=== PATIENT | female | born 1970 | race Caucasian/White ===

== ENCOUNTER → 2017-02-07 | Outpatient (CLI) | payer OTHER ==
[~2017-02-07] MED LIST: HYDROMORPHONE2 MG PO
[2017-02-07 09:20] LABS: LYMPH # 1.1 K/mm3 (0.7-4.5); LYMPH % 24.9 % (10-50.0)
[2017-02-07 09:28] LABS: HEMOGLOBIN 13.1 g/dL (12.2-16.2)
[2017-02-07 10:32] LABS: BUN 14 mg/dL (7-18)
[2017-02-07 10:34] LABS: GFR (ESTIMATED) 78 ML/MIN (59-)
== END ==
LOC: LAB 09:05
PROVIDERS: Nurse Practitioner Obstetrics & Gynecology
DX: N92.0 Excessive and frequent menstruation with regular cycle (principal); N83.209 Unspecified ovarian cyst, unspecified side; Z01.818 Encounter for other preprocedural examination

== ENCOUNTER 2017-02-10 06:17 | Observation (INO) | payer OTHER ==
[2017-02-10] VITALS (14 sets, daily range): BP systolic 126–161; BP diastolic 68–105
[~2017-02-10] VITALS: Ht 162.6 cm; Wt 81.6 kg
--- OUTSIDE RECORDS SUMMARY | 2017-02-10 06:35 | External Medical Summary Rpt ---
Demographics Preferred Language Portuguese Marital Status Unknown Taoism Affiliation Unknown Race Unknown Ethnic Group Unknown Author Author THANH Address Unknown Phone [email or web address] Purpose Continuity of Care Document - through 2016
--- OUTSIDE RECORDS SUMMARY | 2017-02-10 06:35 | External Medical Summary Rpt ---
Demographics Preferred Language Iraqi Marital Status Unknown Religion Affiliation Unknown Race Unknown Ethnic Group Unknown Author Author THANH Address Unknown Phone [email or web address] Purpose Continuity of Care Document - through 2016
--- OUTSIDE RECORDS SUMMARY | 2017-02-10 06:35 | External Medical Summary Rpt ---
Demographics Preferred Language Cambodian Marital Status Unknown Scientology Affiliation Unknown Race Unknown Ethnic Group Unknown Author Author THANH Address Unknown Phone Immunization No patient found.
--- OUTSIDE RECORDS SUMMARY | 2017-02-10 06:35 | External Medical Summary Rpt ---
Author Author THANH Address Unknown Phone Purpose Continuity of Care Document - 12-16-2016 through 2016
--- OUTSIDE RECORDS SUMMARY | 2017-02-10 06:35 | External Medical Summary Rpt ---
Demographics Preferred Language Nicaraguan Marital Status Unknown Cheondoism Affiliation Unknown Race Unknown Ethnic Group Unknown Author Author THANH Address Unknown Phone Immunization No patient found.
--- OUTSIDE RECORDS SUMMARY | 2017-02-10 06:35 | External Medical Summary Rpt ---
Author Author THANH Address Unknown Phone [email or web address] Purpose Continuity of Care Document - 12-16-2016 through 2016
--- OUTSIDE RECORDS SUMMARY | 2017-02-10 06:36 | External Medical Summary Rpt ---
Author Author THANH [place], THANH [employer] Organization [employer] Address Unknown Phone Unavailable Results Basic metabolic panel in Blood Observa Value Referen Units Interpr Notes Date tion ce etation Range Urea 7 - 18 mg/dL Normal No Feb 07 nitrogen informati 2016 9:06 [Mass/vol on in AM ume] in source Serum or data Plasma Calcium 8.5 - mg/dL Low No Feb 07 [Mass/vol 10.1 informati 2016 9:06 ume] in on in AM Serum or source Plasma data Chloride 98 - 107 mmoL/L Normal No Feb 07 [Moles/vo informati 2016 9:06 lume] in on in AM Serum or source Plasma data Carbon 21.0 - mmoL/L Normal No Feb 07 dioxide, 32.0 informati 2016 9:06 total on in AM [Moles/vo source lume] in data Serum or Plasma Creatinin 0.55 - mg/dL Normal No Feb 07 e 1.02 informati 2016 9:06 [Mass/vol on in AM ume] in source Serum or data Plasma Estimated 59- ML/MIN No REFERENCE Feb 07 informati RANGE: 2017 9:06 glomerula on in >60 AM r source ML/MIN/1. filtratio data 73 SQUARE n rate METERSIf (GF this patient is -A merican, then multiply theresult by 1.210. Glucose 74 - 106 mg/dL Normal No Feb 07 [Mass/vol informati 2016 9:06 ume] in on in AM Serum or source Plasma data Potassium 3.5 - 5.1 mmoL/L Normal No Feb 07 informati 2016 9:06 [Moles/vo on in AM lume] in source Serum or data Plasma Sodium 136 - 145 mmoL/L Normal No Feb 07 [Moles/vo informati 2016 9:06 lume] in on in AM Serum or source Plasma data CBC W Auto Differential panel in Blood Observa Value Referen Units Interpr Notes Date ti ce etation Range Basophils 0 - 0.2 K/MM3 Normal No Feb 07 informati 2016 9:06 [#/volume on in AM ] in source Blood by data Automated count Basophils 0.1 - 2.0 % Normal No Feb 07 /100 informati 2016 9:06 leukocyte on in AM s in source Blood by data Automated count Eosinophi 0.0 - 0.4 K/mm3 Normal No Feb 07 ls informati 2016 9:06 [#/volume on in AM ] in source Blood by data Automated count Eosinophi 0.1 - % Normal No Feb 07 ls/100 12.0 informati 2016 9:06 leukocyte on in AM s in source Blood by data Automated count Granulocy 1.8 - 7.8 K/mm3 Normal No Feb 07 naresh informati 2016 9:06 [#/volume on in AM ] in source Blood by data Automated count Granulocy 37.0 - % Normal No Feb 07 naresh/100 80.0 informati 2016 9:06 leukocyte on in AM s in source Blood by data Automated count Hematocri 37.0 - % Normal No Feb 07 t [Volume 47.0 informati 2016 9:06 on in AM Fraction] source of Blood data Hemoglobi 12.2 - g/dL No No Feb 07 n 16.2 informati informati 2017 9:06 [Mass/vol on in on in AM ume] in source source Blood data data Lymphocyt 0.7 - 4.5 K/mm3 Normal No Feb 07 es informati 2016 9:06 [#/volume on in AM ] in source Unspecifi data ed specimen by Automated count Lymphocyt 10 - 50.0 % Normal No Feb 07 es informati 2016 9:06 [#/volume on in AM ] in source Unspecifi data ed specimen by Automated count Erythrocy 27 - 31.2 pg Normal No Feb 07 te mean informati 2016 9:06 corpuscul on in AM ar source hemoglobi data n [Entitic mass] Erythrocy 31.8 - g/dl Normal No Feb 07 te mean 35.4 informati 2016 9:06 corpuscul on in AM ar source hemoglobi data n concentra tion [Mass/vol ume] by Automated count Erythrocy 82.2 - fl Normal No Feb 07 te mean 97.8 informati 2016 9:06 corpuscul on in AM ar volume source [Entitic data volume] by Automated count Monocytes 0.1 - 1.0 K/mm3 Normal No Feb 07 informati 2016 9:06 [#/volume on in AM ] in source Blood by data Automated count Monocytes 1.7 - 9.3 % Normal No Feb 07 informati 2016 9:06 leukocyte on in AM s in source Blood by data Automated count Platelet 7.4 - fl Normal No Feb 07 mean 10.4 informati 2016 9:06 volume on in AM [Entitic source volume] data in Blood by Automated count Platelets 142 - 424 K/mm3 Normal No Feb 07 informati 2016 9:06 [#/volume on in AM ] in source Blood data Erythrocy 4.2 - 5.4 M/mm3 Normal No Feb 07 naresh informati 2016 9:06 [#/volume on in AM ] in source Amniotic data fluid Erythrocy 11.5 - % Normal No Feb 07 te 17.5 informati 2016 9:06 distribut on in AM ion width source [Entitic data volume] by Automated count Leukocyte 4.8 - K/MM3 Low No Feb 07 s 10.8 informati 2016 9:06 [#/volume on in AM ] in source Blood data Free T4 & TSH panel in Serum or Plasma Observa Value Referen Units Interpr Notes Date tion ce etation Range Thyroxine 5.93 - ug/dl Normal No Dec 16 (T4) 13.13 informati 2016 9:17 free on in AM index in source Serum or data Plasma Triiodoth 31 - 39 % Normal No Dec 16 yronine informati 2016 9:17 (T3) on in AM resin source uptake in data Serum or Plasma Thyroxine 4.7 - ug/dl Normal No Dec 16 (T4) 13.3 informati 2016 9:17 [Mass/vol on in AM ume] in source Serum or data Plasma Thyrotrop 0.358 - uIU/ml No No Dec 16 in 3.740 informati informati 2016 9:17 [Units/vo on in on in AM lume] in source source Serum or data data Plasma CBC W Auto Differential panel in Blood Observa Value Referen Units Interpr Notes Date tion ce etation Range Basophils 0 - 0.2 K/MM3 Normal No Dec 16 informati 2016 9:17 [#/volume on in AM ] in source Blood by data Automated count Basophils 0.1 - 2.0 % Normal No Dec 16 informati 2016 9:17 leukocyte on in AM s in source Blood by data Automated count Eosinophi 0.0 - 0.4 K/mm3 Normal No Dec 16 ls informati 2016 9:17 [#/volume on in AM ] in source Blood by data Automated count Eosinophi 0.1 - % Normal No Dec 16 ls/100 12.0 informati 2016 9:17 leukocyte on in AM s in source Blood by data Automated count Granulocy 1.8 - 7.8 K/mm3 Normal No Dec 16 naresh informati 2016 9:17 [#/volume on in AM ] in source Blood by data Automated count Granulocy 37.0 - % Normal No Dec 16 naresh/100 80.0 informati 2016 9:17 leukocyte on in AM s in source Blood by data Automated count Hematocri 37.0 - % Low No Dec 16 t [Volume 47.0 informati 2016 9:17 on in AM Fraction] source of Blood data Hemoglobi 12.2 - g/dL Low Dec 16 n 16.2 2016 9:17 [Mass/vol CRITICAL AM ume] in RESULTS Blood RESU LTS CALLED TO: SNOW Merritt 12/16/16 1010 Juan Cantor e Lymphocyt 0.7 - 4.5 K/mm3 Normal No Dec 16 es informati 2016 9:17 [#/volume on in AM ] in source Unspecifi data ed specimen by Automated count Lymphocyt 10 - 50.0 % Normal No Dec 16 es informati 2016 9:17 [#/volume on in AM ] in source Unspecifi data ed specimen by Automated count Erythrocy 27 - 31.2 pg Normal No Dec 16 te mean informati 2016 9:17 corpuscul on in AM ar source hemoglobi data n [Entitic mass] Erythrocy 31.8 - g/dl Normal No Dec 16 te mean 35.4 informati 2016 9:17 corpuscul on in AM ar source hemoglobi data n concentra tion [Mass/vol ume] by Automated count Erythrocy 82.2 - fl Normal No Dec 16 te mean 97.8 informati 2016 9:17 corpuscul on in AM ar volume source [Entitic data volume] by Automated count Monocytes 0.1 - 1.0 K/mm3 Normal No Epifanio 16 informati 2017 9:17 [#/volume on in AM ] in source Blood by data Automated count Monocytes 1.7 - 9.3 % Normal No Dec 16 /100 informati 2017 9:17 leukocyte on in AM s in source Blood by data Automated count Platelet 7.4 - fl Normal No Dec 16 mean 10.4 informati 2017 9:17 volume on in AM [Entitic source volume] data in Blood by Automated count Platelets 142 - 424 K/mm3 Normal No Dec 16 informati 2016 9:17 [#/volume on in AM ] in source Blood data Erythrocy 4.2 - 5.4 M/mm3 Low No Dec 16 naresh informati 2016 9:17 [#/volume on in AM ] in source Amniotic data fluid Erythrocy 11.5 - % Normal No Dec 16 te 17.5 informati 2016 9:17 distribut on in AM ion width source [Entitic data volume] by Automated count Leukocyte 4.8 - K/MM3 Low No Dec 16 s 10.8 informati 2016 9:17 [#/volume on in AM ] in source Blood data
--- NOTE | 2017-02-10 09:54 | Operative Note ---
Procedure/Operative Record Procedure Date of procedure: 02/10/17 Pre-Op Dx: RIGHT ovarian cyst, RIGHT lower quadrant pain, menorrhagia, uterine hypertrophy Post-Op Dx: RIGHT ovarian cyst, RIGHT lower quadrant pain, menorrhagia, uterine hypertrophy Procedure performed: Laparoscopically assisted vaginal hysterectomy, RIGHT salpingo-oophorectomy, LEFT salpingectomy Surgeon: Dr. Theo Lao Olap Developer(s): Lary Vega Anesthesia: Quirino Hollins EBL (ml): 500 Clinical note: She is a 46-year-old lady who complains of extremely heavy periods. She was seen with RIGHT lower quadrant pain and it was noted that she had a 10 cm cyst on the RIGHT side. It had a hemorrhagic appearance. As result of this she was offered laparoscopically assisted vaginal hysterectomy and RIGHT salpingo- oophorectomy. We also elected to remove her LEFT tube. Her LEFT ovary was normal and we elected to leave this in place. Operative findings: She had an anteverted extremely bulky uterus. On the RIGHT side there was a simple appearing 6 cm ovarian cyst. The ovaries otherwise appeared normal. The fallopian tubes appeared normal. The upper abdomen appeared normal. Operative note: She was taken to the operating room where general anesthesia was found be adequate. She was prepped and draped in the normal sterile fashion in the semi- lithotomy position. A weighted speculum was placed in the vagina and the anterior lip of the cervix was grasped with a tenaculum. A Edna uterine the plate was then placed within the uterine cavity. The balloon was insufflated. I changed gloves and injected approximately 10 mL of 0.5 percent ropivacaine around the umbilicus. I made a small incision within the umbilicus and inserted a Veress needle into the abdominal cavity. The abdominal cavity was then insufflated with carbon oxide gas to a pressure of 20 mmHg of mercury. I then inserted an 11 mm trocar under direct vision. I injected through and through the pubic hairline, made a small incision here and inserted a 5 mm trocar under direct vision. I identified the inferior epigastric arteries on the LEFT side, went lateral to these and injected through and through. I made a small skin incision and inserted an 11 mm trocar under direct vision. An 11 mm trocar was similarly placed on the RIGHT side. The LEFT round ligament was then grasped and cut with Harmonic scalpel. I then took down the LEFT tube. This was followed by the anterior aspect of the peritoneum which I took down to the midline overlying the bladder. I then took down the LEFT utero-ovarian ligament with Harmonic scalpel. I took down the posterior aspect of the broad ligament with Harmonic scalpel to the level of the uterosacral ligament. I then took down the bladder further anteriorly and laterally. The uterine arteries were then identified and hemoclips were applied across the uterine arteries. These were then cut with Harmonic scalpel adjacent to the cervix. We then turned our attention to the patient's RIGHT side. The RIGHT round ligament was then taken down with Harmonic scalpel. This was followed by the RIGHT tube. This was followed by the RIGHT utero-ovarian ligament. I then took down the anterior aspect of the peritoneum to the midline joining up with the other side. The posterior aspect of the broad ligament was taken down to the level of the uterosacral ligament. The uterine arteries were skeletonized on the RIGHT side and hemoclips were applied to the uterine arteries. These were then cut adjacent to the cervix with Harmonic scalpel. The bladder was then taken down further anteriorly. We then grasped the RIGHT tube and ovary and freed it up on its infundibulopelvic ligament. 2 Endoloops were then applied across the ligament. The tube and ovary were then cut away. There placed in the pelvis to retrieved at the time of the vaginal portion the surgery. On the LEFT side the tube was grasped and removed using Harmonic scalpel. After assuring hemostasis we then turned our attention to the vaginal portion of the surgery. The patient was placed in the lithotomy position and a weighted speculumin vagina. The anterior and posterior lip of the cervix were grasped with Gleaosn tenacula. I then injected approximately 20 mL of 1 percent Xylocaine with epinephrine circumferentially about the cervix. I then circumscribed the cervix with knife. The posterior cul-de-sac was then opened with Mcmanus scissors and the RIGHT ovary and tube were retrieved. A long-weighted spec was then placed in the vagina and the LEFT uterosacral ligament was clamped cut suture-ligated and tagged. This was followed by the LEFT cardinal ligament which was clamped cut and suture ligated. We then clamped cut suture-ligated and tagged the RIGHT uterosacral ligament. This was followed by clamping cutting and tying the RIGHT cardinal ligament. We then grasped the anterior peritoneum and vagina mucosa and using both sharp and blunt dissection dissected the bladder off the cervix. A Philomath retractor was placed through this defect. We then clamped across remaining tissues bilaterally. These were tied with Vicryl suture. The uterus was then removed through the vagina. The posterior cuff was then closed using running 2-0 Vicryl suture in a locked fashion. A Osorio suture was then placed using 0 PDS suture first through the posterior vagina and peritoneum and through the LEFT pararectal fascia. It was plicated across the posterior peritoneum and through the RIGHT pararectal fascia. It was then passed through the vagina and LEFT to be tied at the end. The peritoneum was then grasped anteriorly and using 2-0 PDS suture in a purse string fashion close the peritoneum. The vaginal mucosa was then closed using running 0 Vicryl suture in a locked fashion from anterior to posterior from LEFT to RIGHT. I then grasped the Osorio suture and unfortunately the suture had broken. We removed the suture. A Kendrick catheter was then placed in the bladder and clear urine was seen to flow. We then changed gloves and once again insufflated the abdominal cavity with carbon oxide gas. There was a small amount of ooze on both the LEFT and RIGHT side of the pelvic sidewall and Surgicel snow was used to obtain excellent hemostasis. I let the gas out of the abdomen and once again assured hemostasis. We then injected approximately 20 mL of 0.5 percent ropivacaine into the pelvis. The secondary trochars were then removed under direct vision. The sites were hemostatic. The gas was let out of the abdomen and the primary trocar and camera were removed together. No bowel was seen to follow. The 11 mm trocar sites were closed deeply with 2-0 Vicryl suture in a gvjuve-ro-awonf fashion. The skin was closed with subcuticular 4-0 Monocryl suture. The 5 mm trocar site was closed with subcu care 4-0 Monocryl. Sterile dressings were applied. The patient tolerated the procedure well and was taken to the recovery room in excellent condition. All sponge instrument and needle counts were correct. Estimate a blood loss was approximately 500 mL. Conplications: None Specimens: Uterus, RIGHT ovary and tube, LEFT fallopian tube at 0836
--- NOTE | 2017-02-10 10:00 | PHARMACY CLINIC NOTE ---
Patient Demographics Patient Demographics Admission date: 02/10/17 Date: 02/10/17 Time: 0958 Allergies Coded Allergies: No Known Allergies (02/10/17) HEIGHT- FT: 5 IN: 4.00 K.648 VTE General Information Disclaimer The following section includes nursing documentation that has been pulled in for pharmacy review. Clinical trial participant? No VTE prophylaxis NQF [id number] VTE prophylaxis ordered? Yes Type of prophylaxis/treatment: ICD, Alex (POST OP) at 0959
--- NOTE | 2017-02-10 11:15 | Anesthesia Record ---
Anesthesia Record Part I Total IV fluids: 1100 EBL (ml): 500 Urine Output: 200 B/P: 126/79 % SaO2: 97 Pulse: 74 Resps: 10 Temp: 97.3 Patient is: Awake, Stable Stable to PACU at: 0944 at 1115
--- NOTE | 2017-02-10 11:16 | Anesthesia Record ---
Anesthesia Record Part II Discharge time: 1014 Destination: Second Floor PACU nurse assessment review? Yes Patient is: Awake, Stable Anesthesia complications? No at 1119
[2017-02-10 14:10] LABS: URINE BILIRUBIN - DIPSTICK NEGATIVE (NEG); URINE BLOOD 1+ (NEG)
[2017-02-10 16:46] LABS: HEMOGLOBIN 11.9 g/dL (12.2-16.2)
[2017-02-11 05:00] VITALS: BP 151/91
[2017-02-11 07:01] LABS: LYMPH % 14.4 % (10-50.0)
[2017-02-11 08:00] VITALS: BP 147/84
--- NOTE | 2017-02-11 10:08 | ACUTE CARE PROGRESS NOTE (QUA) ---
Progress Notes Subjective Date 02/11/17 Time 1001 Note She is doing well this morning. She is eating and drinking and ambulating. Her pain is well-controlled. She denies any chest pain, shortness of breath or calf tenderness. She is voiding well. Patient/family reports: feeling better, no complaints Objective Findings Last VS-Temp:98.3 B/P:147/84 Pulse:93 Resp:20 SaO2:99 ROOM AIR Last weight lbs:180 oz:0 K.648 Method:Floor Scales Laboratory Tests 02/11/17 0540: Sodium 134 L, Potassium 4.4, Chloride 102, Carbon Dioxide 27, BUN 11, Creatinine 0.7, Estimated Creat Clear 132, Estimated GFR (MDRD) 91, Glucose 88, Calcium 7.9 L, WBC 6.7, RBC 3.29 L, Hgb 10.0 L, Hct 30.7 L, MCV 93.3, RDW 14.0, Plt Count 201, MPV 7.5, Gran % 78.2, Gran # 5.2, Lymphocytes % 14.4, Monocytes % 7.2, Eosinophils % 0.2, Basophils % 0.1, Lymphocytes # 1.0, Monocytes # 0.5, Eosinophils # 0.0, Basophils # 0.0, PUBS MCHC 32.7, MCH 30.5 02/10/17 1605: Hgb 11.9 L, Hct 36.3 L Exam General appearance: normal appearance, alert, active, face symmetric ENT: normal exam, mucous membranes moist Neck: normal inspection Cardiovascular: normal exam, normal sinus rhythm, regular rate & rhythm Respiratory: normal exam, aerating well, clear to auscultation ABD: normal exam, non-distended (incisions clean and dry), normal bowel sounds, soft, no guarding Genitourinary: normal voiding & quantity Extremities: normal exam, full range of motion Musculoskeletal: normal exam Skin: normal exam, normal color Neuro: normal exam Reviewed: vital signs, lab results Assessment/Plan Problem List 1. Status post hysterectomy 2. Menorrhagia 3. Ovarian cyst, right 4. Uterine hypertrophy 5. Ovarian cystadenoma Patient condition Improving, Stable Plan: continue current care, initiate discharge plan This inpt stay is expected to cross 2 MNs from start of care No Comments: She is doing very well this morning. She is eating and drinking and ambulating. She has not had a bowel movement. She is voiding well. Her pain is well- controlled. We will plan to send her home this morning. at 4982
[2017-02-11] MEDS ORDERED: HYDROMORPHONE2 MG PO (10:10)
--- NOTE | 2017-02-11 10:20 | Discharge Summary ---
Discharge Summary Admission date: 02/10/17 Discharge date: 02/11/17 Discharge diagnoses: Menorrhagia, RIGHT ovarian cyst, uterine hypertrophy, Clinical note: She is a 46-year-old lady who complains of extremely heavy periods. She had an ultrasound that showed an enlarged uterus and also had a RIGHT ovarian cyst approximately 10 cm in size. When I reviewed the ultrasound it looked like it was a hemorrhagic ovarian cyst. She has been tried on the control pill and this seemed to help somewhat with her periods but given the 10 cm RIGHT ovarian cyst we elected to perform a laparoscopically assisted vaginal hysterectomy and RIGHT salpingo-oophorectomy. Course in hospital: On February 10, 2017 she underwent a laparoscopically assisted vaginal hysterectomy and RIGHT salpingo-oophorectomy. We also did a LEFT salpingectomy. We have LEFT her LEFT ovary in place. She has done well postoperatively and has remained afebrile throughout her hospitalization. She is eating and drinking and ambulating. She denies any chest pain, shortness of breath or calf tenderness. She is voiding well. She has not had a bowel movement yet. Surgeons are clean and dry. She has minimal lochia. Laboratory Tests 02/11/17 0540: Sodium 134 L, Potassium 4.4, Chloride 102, Carbon Dioxide 27, BUN 11, Creatinine 0.7, Estimated Creat Clear 132, Estimated GFR (MDRD) 91, Glucose 88, Calcium 7.9 L, WBC 6.7, RBC 3.29 L, Hgb 10.0 L, Hct 30.7 L, MCV 93.3, RDW 14.0, Plt Count 201, MPV 7.5, Gran % 78.2, Gran # 5.2, Lymphocytes % 14.4, Monocytes % 7.2, Eosinophils % 0.2, Basophils % 0.1, Lymphocytes # 1.0, Monocytes # 0.5, Eosinophils # 0.0, Basophils # 0.0, PUBS MCHC 32.7, MCH 30.5 02/10/17 1605: Hgb 11.9 L, Hct 36.3 L Plans for ongoing care: She is discharged home to follow-up with me in 2 weeks' time. Discharge medications She'll continue with her home medications. She was given a prescription for hydromorphone 2 mg, 30 tablets take every 4 hours as needed for pain. She will take etst-jju-cgaegwd stool softeners as well. She will also take naproxen. DC/follow-up instructions She was given the usual instructions with respect to limiting her activity, driving and sexual activity. She was given instructions with respect to wound care. Condition at discharge Stable and improved at 1020
[2017-02-11 10:58] VITALS: BP 147/84
== END 2017-02-11 11:08 | disposition home or self-care (01) ==
LOC: SDC 06:17 → OB 06:32 → SDC 07:30 → OB 10:30
PROVIDERS: Nurse Practitioner Obstetrics & Gynecology
PROC: 0UTC7ZZ Resection of Cervix, Via Natural or Artificial Opening (ICD-10-PCS; principal; 2017-02-10 07:30)
PROC: 0UT0FZZ Resection of Right Ovary, Via Natural or Artificial Opening With Percutaneous Endoscopic Assistance (ICD-10-PCS; principal; 2017-02-10 07:30)
PROC: 0UT7FZZ Resection of Bilateral Fallopian Tubes, Via Natural or Artificial Opening With Percutaneous Endoscopic Assistance (ICD-10-PCS; principal; 2017-02-10 07:30)
PROC: 0UT9FZZ Resection of Uterus, Via Natural or Artificial Opening With Percutaneous Endoscopic Assistance (ICD-10-PCS; principal; 2017-02-10 07:30)
DX: N83.201 Unspecified ovarian cyst, right side (principal); R10.31 Right lower quadrant pain; N92.0 Excessive and frequent menstruation with regular cycle; N85.2 Hypertrophy of uterus
CPT/HCPCS: G0378; J0131; J2405; J2710